=== PATIENT | male | born 1980 | race Caucasian/White ===

== ENCOUNTER 2018-03-24 13:50 | Emergency (ER) | payer BC ==
[~2018-03-24] VITALS: Ht 170.2 cm; Wt 68.0 kg
[2018-03-24 13:56] VITALS: BP 143/66; PULSE 59; RESP 16; TEMP 97.3; O2SAT 100
--- NOTE | 2018-03-24 14:25 | PD ---
HPI Chief Complaint: Abdominal Pain Time Seen by Provider: 13:58 Travel History International Travel<30 days: No Contact w/Intl Traveler<30days: No Traveled to known affect area: No History of Present Illness HPI pt is a 37 y.o male who presents to the ED with a cc of severe RLQ pain. Pt states that pain started 4 hours ago. Describes the pain as sharp, 10/10, non- radiating. Also reports having dysuria that started this morning. Denies Fever, nausea, vomiting, diarrhea, SOB. Also denies previous hx of similar sxs. Pt is on methadone, but mentions that he recently had a relapse and used IV drugs. Denies any blood in the urine. States the pain started this morning, coming and going, associated signs symptoms in context as above per History Past Medical History Narrative Medical IV drug abuse otherwise negative. Past Surgical History Narrative Surgical Denies Social History Alcohol Use: Yes Tobacco Use: Yes Allergies-Medications (Allergen,Severity, Reaction): Coded Allergies: No Known Allergies (Unverified , 03/24/18) Reported Meds & Prescriptions Reported Meds & Active Scripts Active [place] (Hydrocodone-Acetaminophen) 10-325 Mg Tab 1 Tab PO Q6H PRN Flomax (Tamsulosin HCl) 0.4 Mg Cap 0.4 Mg PO HS Zofran Odt (Ondansetron Odt) 4 Mg Tab 4 Mg SL Q6HR PRN Ketorolac (Ketorolac Tromethamine) 10 Mg Tab 10 Mg PO Q6HR PRN Review of Systems Except as stated in HPI: all other systems reviewed are Neg Physical Exam Narrative GENERAL: Well-developed, well-nourished, track siddiqui, rolling from side to side and pain. SKIN: Warm and dry. HEAD: Atraumatic. Normocephalic. EYES: Pupils equal and round. No scleral icterus. No injection or drainage. ENT: No nasal bleeding or discharge. Mucous membranes pink and moist. NECK: Trachea midline. No JVD. CARDIOVASCULAR: Regular rate and rhythm. RESPIRATORY: No accessory muscle use. Clear to auscultation. Breath sounds equal bilaterally. GASTROINTESTINAL: Abdomen soft, moderately tender over the RLQ and LLQ region. nondistended. negative psoas sign. Negative Rovsing sign. No rebound tenderness appreciated. L sided CVA tenderness. GENITOURINARY: Scrotum and testes normal and nontender. MUSCULOSKELETAL: Extremities without clubbing, cyanosis, or edema. NEUROLOGICAL: Awake and alert. No obvious cranial nerve deficits. Motor grossly within normal limits. Five out of 5 muscle strength in the arms and legs. Normal speech. PSYCHIATRIC: Appropriate mood and affect; insight and judgment normal. Data Data Last Documented VS Vital Signs Date Time Temp Pulse Resp B/P (MAP) Pulse Ox O2 Delivery O2 Flow Rate FiO2 03/24/18 17:57 70 18 138/70 (92) 98 03/24/18 13:56 97.3 Orders Orders Complete Blood Count With Diff (03/24/18 14:27) Comprehensive Metabolic Panel (03/24/18 14:27) Lipase (03/24/18 14:27) Urinalysis - C+S If Indicated (03/24/18 14:27) Ct Abd/Pel W/O Iv Contrast (03/24/18 14:27) Iv Access Insert/Monitor (03/24/18 14:27) Ecg Monitoring (03/24/18 14:27) Oximetry (03/24/18 14:27) Sodium Chloride 0.9% Flush (Ns Flush) (03/24/18 14:30) Ketorolac Inj (Toradol Inj) (03/24/18 14:30) Vascular Access Team Consult/P PRN (03/24/18 14:39) Vascular Poc Ultrasound (03/24/18 ) Ed Discharge Order (03/24/18 17:13) Labs Laboratory Tests Test 03/24/18 15:00 White Blood Count 16.0 TH/MM3 Red Blood Count 4.93 MIL/MM3 Hemoglobin 13.2 GM/DL Hematocrit 39.6 % Mean Corpuscular Volume 80.4 FL Mean Corpuscular Hemoglobin 26.7 PG Mean Corpuscular Hemoglobin Concent 33.2 % Red Cell Distribution Width 15.1 % Platelet Count 284 TH/MM3 Mean Platelet Volume 7.3 FL Neutrophils (%) (Auto) 91.2 % Lymphocytes (%) (Auto) 3.8 % Monocytes (%) (Auto) 3.9 % Eosinophils (%) (Auto) 0.1 % Basophils (%) (Auto) 1.0 % Neutrophils # (Auto) 14.6 TH/MM3 Lymphocytes # (Auto) 0.6 TH/MM3 Monocytes # (Auto) 0.6 TH/MM3 Eosinophils # (Auto) 0.0 TH/MM3 Basophils # (Auto) 0.2 TH/MM3 CBC Comment AUTO DIFF Differential Comment AUTO DIFF CONFIRMED Urine Color YELLOW Urine Turbidity HAZY Urine pH 8.5 Urine Specific [place] 1.023 Urine Protein 30 mg/dL Urine Glucose (UA) NEG mg/dL Urine Ketones TRACE mg/dL Urine Occult Blood SMALL Urine Nitrite NEG Urine Bilirubin NEG Urine Urobilinogen 2.0 MG/DL Urine Leukocyte Esterase NEG Urine RBC 88 /hpf Urine WBC 6 /hpf Urine Mucus FEW /lpf Microscopic Urinalysis Comment CULT NOT INDICATED Blood Urea Nitrogen 18 MG/DL Creatinine 1.10 MG/DL Random Glucose 164 MG/DL Total Protein 7.5 GM/DL Albumin 3.5 GM/DL Calcium Level 8.8 MG/DL Alkaline Phosphatase 109 U/L Aspartate Amino Transf (AST/SGOT) 36 U/L Alanine Aminotransferase (ALT/SGPT) 39 U/L Total Bilirubin 0.5 MG/DL Sodium Level 143 MEQ/L Potassium Level 3.4 MEQ/L Chloride Level 108 MEQ/L Carbon Dioxide Level 23.7 MEQ/L Anion Gap 11 MEQ/L Estimat Glomerular Filtration Rate 75 ML/MIN Lipase 88 U/L [facility] Medical Decision Making Medical Screen Exam Complete: Yes Emergency Medical Condition: Yes Differential Diagnosis nephrolithiasis, testicular torsion highly unlikely, appendicitis, diverticulitis, peritonitis, perforated viscous Narrative Course Patient room to the emergency department, Toradol given on reassessment patient is sleeping soundly and appears much more comfortable. He is calm and cooperative and pleasant. Discussed the CT findings that does show an obstructing 7 mm kidney stone with minimal hydronephrosis, creatinine normal, no evidence for UTI. He is comfortable and afebrile and is appropriate for a trial of passage despite the size of the stone, discussed he needs to follow-up with the urologist. Discussed Flomax risk benefits competitions alternatives and discussed return to ED criteria. He is stable for discharge Last 24 hours Impressions Abdomen/Pelvis CT 03/24/18 9135 Signed Impressions: CONCLUSION: 1. Acute obstructive uropathy of the left distal ureter at the left ureteroves ical junction secondary to a 7 mm calcified calculus resulting in moderate uret eropelvicaliectasis on the left. 2. Hepatosplenomegaly. 3. Tiny scattered 2 mm calcified nonobstructing bilateral renal calculi. Diagnosis Primary Impression: Nephrolithiasis Referrals: Garry Galloway MD [facility]Other Pt SpecificInfo: Prescription(s) given Scripts Hydrocodone-Acetaminophen ([place]) 10-325 Mg Tab 1 TAB PO Q6H Y for PAIN, #8 TAB 0 Refills Prov: Alex Thomson MD 03/24/18 Tamsulosin (Flomax) 0.4 Mg Cap 0.4 MG PO HS for Manage Prostate Problems, #30 CAP 0 Refills Prov: Alex Thomson MD 03/24/18 Ondansetron Odt (Zofran Odt) 4 Mg Tab 4 MG SL Q6HR Y for Nausea/Vomiting, #30 TAB 0 Refills Prov: Alex Thomson MD 03/24/18 Ketorolac (Ketorolac) 10 Mg Tab 10 MG PO Q6HR Y for PAIN, #15 TAB 0 Refills Prov: Alex Thomson MD 03/24/18 Disposition: 01 DISCHARGE HOME Condition: Stable Alex Thomson MD Mar 24, 2018 14:25
[2018-03-24] MEDS ORDERED: KETOROLAC TROMETHAMINE 30 MG/ML (IVP) VIAL IM ONE (14:30)
[2018-03-24] MEDS ORDERED: SODIUM CHLORIDE 0.9% FLUSH 10 ML FLUSH IV FLUSH PRN (14:30)
[2018-03-24 14:33] VITALS: O2SAT 98
[2018-03-24 15:21] LABS: AUTOMATED NEUTROPHIL # 14.6 TH/MM3 (1.8-7.7); BASOPHIL # 0.2 TH/MM3 (0-0.2); EOSINOPHIL % 0.1 % (0.0-4.0); HEMATOCRIT 39.6 % (39.0-51.0); HEMOGLOBIN 13.2 GM/DL (13.0-17.0); LYMPH % 3.8 % (9.0-44.0); LYMPHOCYTE # 0.6 TH/MM3 (1.0-4.8); MEAN CELL VOLUME 80.4 FL (80.0-100.0); MEAN CORPUSCULAR HEMOGLOBIN 26.7 PG (27.0-34.0); MEAN CORPUSCULAR HGB CONC 33.2 % (32.0-36.0); MEAN PLATELET VOLUME 7.3 FL (7.0-11.0); MONO % 3.9 % (0.0-8.0); MONOCYTE # 0.6 TH/MM3 (0-0.9); NEUT % 91.2 % (16.0-70.0); PLATELET COUNT 284 TH/MM3 (150-450); RED BLOOD COUNT 4.93 MIL/MM3 (4.50-5.90); RED CELL DISTRIBUTION WIDTH 15.1 % (11.6-17.2)
[2018-03-24 15:29] LABS: BILIRUBIN, URINE NEG (NEG); BLOOD, URINE SMALL (NEG); GLUCOSE,URINE NEG (NEG); KETONE, URINE TRACE mg/dL (NEG); MUCUS URINE FEW /lpf (OCC); NITRITE,URINE NEG (NEG); PH, URINE 8.5 (5.0-8.5); URINE COLOR YELLOW (YELLW/STRAW); URINE LEUKOCYTE ESTERASE NEG (NEG)
[2018-03-24 15:49] LABS: ALBUMIN 3.5 GM/DL (3.4-5.0); ALT (GPT) 39 U/L (12-78); AST (GOT) 36 U/L (15-37); BICARBONATE 23.7 MEQ/L (21.0-32.0); BLOOD UREA NITROGEN 18 MG/DL (7-18); CALCIUM 8.8 MG/DL (8.5-10.1); CHLORIDE 108 MEQ/L (98-107); GLOMERULAR FILTRATION RATE 75 ML/MIN (>89); GLUCOSE,RANDOM 164 MG/DL (74-106); SODIUM (NA) 143 MEQ/L (136-145)
[2018-03-24 15:52] LABS: ALKALINE PHOSPHATASE 109 U/L (45-117); TOTAL BILIRUBIN ADULT 0.5 MG/DL (0.2-1.0); TOTAL PROTEIN 7.5 GM/DL (6.4-8.2)
--- NOTE | 2018-03-24 16:15 | RADRPT ---
EXAM DATE: 03/24/2018 3:48 PM EDT AGE/SEX: 37 years / Male INDICATIONS: Left sided abdomen pain CLINICAL DATA: This is the patient's initial encounter. Patient reports that signs and symptoms have been present for 1 day and indicates a pain score of 6/10. MEDICAL/SURGICAL HISTORY: None. None. RADIATION DOSE: 7.84 CTDI (mGy) COMPARISON: No prior [place] exams available for comparison. TECHNIQUE: Multiple contiguous axial images were obtained through the abdomen. Images were obtained using multiple row detector helical technique. Using dose reduction techniques, radiation dose was ke pt as low as reasonably achievable to obtain optimal diagnostic quality images. FINDINGS: Lower Lungs: The visualized lower lungs are clear. Liver: Hepatomegaly is noted. The liver has a homogeneous density without space-occupying lesion. The re is no dilation of the biliary tree. Spleen: Splenomegaly is noted. Pancreas: Unremarkable without mass or calcification. Kidneys: There is acute obstructive uropathy of the left distal ureter at the left ureterovesical ju nction secondary to a 7 mm calcified calculus resulting in moderate ureteropelvicaliectasis on the le ft. Tiny 2 mm calcified nonobstructing bilateral renal calculi are noted. Adrenal Glands: Unremarkable. Aorta: The aorta and proximal iliac vessels are grossly unremarkable without aneurysmal dilation. Bowel/Mesentery: The bowel loops are grossly unremarkable. The cecum and sigmoid colon have a normal configuration. Abdominal Wall: Intact. Retroperitoneum: No evidence of adenopathy in the retrocrural, para-aortic, or deep pelvic regions. Bladder: Contours are smooth. Reproductive Organs: No abnormal masses or calcifications seen. Inguinal: The inguinal region is unremarkable without evidence of adenopathy. Bony Structures: A screw is noted traversing the right sacroiliac joint.. CONCLUSION: 1. Acute obstructive uropathy of the left distal ureter at the left ureterovesical junction secondar y to a 7 mm calcified calculus resulting in moderate ureteropelvicaliectasis on the left. 2. Hepatosplenomegaly. 3. Tiny scattered 2 mm calcified nonobstructing bilateral renal calculi. Electronically signed by: Alex Tafoya MD 03/24/2018 4:13 PM EDT
[2018-03-24] MEDS ORDERED: TAMS5CAP PO (17:12)
[2018-03-24] MEDS ORDERED: ZOFR4TAB3 SL (17:12)
[2018-03-24] MEDS ORDERED: KETO10 PO (17:12)
[2018-03-24] MEDS ORDERED: HYDR-3366 PO (17:22)
[2018-03-24 17:57] VITALS: BP 138/70
== END 2018-03-24 18:06 | disposition home or self-care (01) ==
LOC: NEPC 13:50
DX: N20.0 Calculus of kidney (principal); R16.2 Hepatomegaly with splenomegaly, not elsewhere classified; Z72.0 Tobacco use; Z79.899 Other long term (current) drug therapy
CPT/HCPCS: 74176; 80053; 81001; 83690; 85025; 96372; 99284; J1885